=== PATIENT | female | born 1970 | race Caucasian/White ===

== ENCOUNTER → 2023-12-19 15:57 | Outpatient (REF) | payer BC, SELFPAY | LOC: RAD 15:57 | PROVIDERS: ATTENDING PHYSICIAN Physician Assistant Medical | DX: M54.10 Radiculopathy, site unspecified (principal) | CPT/HCPCS: 72110; 73502 ==

== ENCOUNTER → 2024-01-10 17:58 | Outpatient (REF) | payer BC, SELFPAY | LOC: PAVMRI 17:58 | PROVIDERS: ATTENDING PHYSICIAN Physician Assistant Medical; FAMILY PHYSICIAN Family Medicine | DX: M54.10 Radiculopathy, site unspecified (principal) | CPT/HCPCS: 72148 ==

== ENCOUNTER → 2024-03-20 14:42 | Outpatient (REF) | payer BC, SELFPAY | LOC: HWRAD 14:42 | PROVIDERS: ATTENDING PHYSICIAN Family Medicine; REFERRING PHYSICIAN Nurse Practitioner Family | DX: R93.89 Abnormal findings on diagnostic imaging of other specified body structures (principal) | CPT/HCPCS: 76830; 76856 ==